=== PATIENT | female | born 1970 | race Caucasian/White ===

== ENCOUNTER 2018-05-03 10:16 | Emergency (ER) | payer OTHER ==
[~2018-05-03] VITALS: Ht 175.3 cm; Wt 85.1 kg
[2018-05-03 10:18] VITALS: TEMP 36.8; Ht 175.3 cm; Wt 85.1 kg
[2018-05-03] MEDS ORDERED: RANITIDINE HCL 50 MG/100 ML D5W IV STA (10:26)
[2018-05-03] MEDS ORDERED: METHYLPREDNISOLONE 125 MG VIAL IV STA (10:26)
[2018-05-03] MEDS ORDERED: DiphenhydrAMINE HCL 50 MG/ML VIAL IV STA (10:26)
--- NOTE | 2018-05-03 10:32 | EMERGENCY ROOM VISIT NOTE ---
History Report prepared by Kwabena: Abbe Becker Under the Supervision of: Dr. Danyelle Rice M.D. First contact with patient: 10:23 Chief Complaint: ALLERGIC REACTION Stated Complaint: CHEST PAIN,DOC REFERRED History of Present Illness The patient is a 47 year old female who presents to the Emergency Room with complaints of an allergic reaction The patient states she is allergic to peanuts. She reports she was out to breakfast today when she ate something that had chocolate in it. The patient notes she started to wheeze and used her inhaler twice. She states her wheezing subsided and then returned after she returned home. The patient reports she used her inhaler again, and she had relief of her symptoms. She notes she then developed constant chest pressure approximately 30 minutes later. The patient states it is located in the central part of her chest, and it feels like she is being sandwiched. She reports the chest discomfort is a new symptom of her allergic reaction, so she came to the ED. The patient notes she did not take Benadryl because her inhaler typically resolves her allergic symptoms. She states she has a history of asthma and seasonal allergies. The patient denies tongue swelling, itching, rash, a history of smoking, a history of heart problems, worsening pain and shortness of breath with exertion, and swelling in her legs. 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 Review of Systems See HPI for pertinent positives & negatives. A total of 10 systems reviewed and were otherwise negative. Past Medical & Surgical Medical Problems: (1) Asthma (2) Peanut allergy (3) Seasonal allergies Family History Patient reports no known family medical history. Social History Smoking Status: Never Smoker Marital Status: Housing Status: lives with family Occupation Status: employed Current/Historical Medications Scheduled Albuterol Hfa (Ventolin Hfa), 2-4 PUFFS INH Q6H Prednisone (Prednisone), 40 MG PO DAILY Scheduled PRN Albuterol Hfa (Ventolin Hfa), 2-4 PUFFS INH Q6H PRN for Shortness of Breath Epinephrine (Epipen 2-Jaiden), 1 AMP IM DIRECTED PRN for Allergic Reaction Allergies Coded Allergies: Peanut (Unverified Allergy, Unknown, ., 05/03/18) Penicillins (Unverified Allergy, Unknown, ., 05/03/18) Physical Exam Vital Signs Date Time Temp Pulse Resp B/P (MAP) Pulse Ox O2 Delivery O2 Flow Rate FiO2 05/03/18 13:06 61 18 111/61 96 05/03/18 11:00 55 18 123/76 98 Room Air 05/03/18 10:42 96 Room Air 05/03/18 10:33 63 05/03/18 10:18 36.8 64 18 125/72 96 Room Air Physical Exam Vital signs reviewed. General: Well-appearing 47 year old female, in no significant distress. HEENT: No scleral icterus, PERRLA, neck supple. Atraumatic. No erythema or swelling to the posterior oropharynx. Cardiovascular: Regular rate and rhythm, no extra sounds. Pulmonary: Clear to auscultation bilaterally, normal work of breathing. Abdomen: Soft, nontender, nondistended, positive bowel sounds. Musculoskeletal: Atraumatic, no peripheral edema. Neurologic: Patient awake alert and oriented x 3 Skin: Warm, dry, no rash Medical Decision & Procedures Laboratory Results 05/03/18 10:35 Red Blood Count 4.52, Mean Corpuscular Volume 92.5, Mean Corpuscular Hemoglobin 32.7, Mean Corpuscular Hemoglobin Concent 35.4, Mean Platelet Volume 9.8, Neutrophils (%) (Auto) 65.4, Lymphocytes (%) (Auto) 23.2, Monocytes (%) (Auto) 9.7, Eosinophils (%) (Auto) 1.3, Basophils (%) (Auto) 0.2, Neutrophils # (Auto) 3.65, Lymphocytes # (Auto) 1.29, Monocytes # (Auto) 0.54, Eosinophils # (Auto) 0.07, Basophils # (Auto) 0.01 05/03/18 10:35 Test 05/03/18 10:35 White Blood Count 5.57 K/uL (4.8-10.8) Red Blood Count 4.52 M/uL (4.2-5.4) Hemoglobin 14.8 g/dL (12.0-16.0) Hematocrit 41.8 % (37-47) Mean Corpuscular Volume 92.5 fL (80-100) Mean Corpuscular Hemoglobin 32.7 pg (25-34) Mean Corpuscular Hemoglobin Concent 35.4 g/dl (32-36) Platelet Count 224 K/uL (130-400) Mean Platelet Volume 9.8 fL (7.4-10.4) Neutrophils (%) (Auto) 65.4 % Lymphocytes (%) (Auto) 23.2 % Monocytes (%) (Auto) 9.7 % Eosinophils (%) (Auto) 1.3 % Basophils (%) (Auto) 0.2 % Neutrophils # (Auto) 3.65 K/uL (1.4-6.5) Lymphocytes # (Auto) 1.29 K/uL (1.2-3.4) Monocytes # (Auto) 0.54 K/uL (0.11-0.59) Eosinophils # (Auto) 0.07 K/uL (0-0.5) Basophils # (Auto) 0.01 K/uL (0-0.2) RDW Standard Deviation 42.7 fL (36.4-46.3) RDW Coefficient of Variation 12.7 % (11.5-14.5) Immature Granulocyte % (Auto) 0.2 % Immature Granulocyte # (Auto) 0.01 K/uL (0.00-0.02) Anion Gap 5.0 mmol/L (3-11) Est Creatinine Clear Calc Drug Dose 83.4 ml/min Estimated GFR () 81.5 Estimated GFR (Non- 70.3 BUN/Creatinine Ratio 13.3 (10-20) Calcium Level 8.9 mg/dl (8.5-10.1) Total Bilirubin 2.0 mg/dl (0.2-1) Direct Bilirubin 0.4 mg/dl (0-0.2) Aspartate Amino Transf (AST/SGOT) 26 U/L (15-37) Alanine Aminotransferase (ALT/SGPT) 45 U/L (12-78) Alkaline Phosphatase 57 U/L (45-117) Troponin I < 0.015 ng/ml (0-0.045) Total Protein 7.9 gm/dl (6.4-8.2) Albumin 4.3 gm/dl (3.4-5.0) Laboratory results per my review. Medications Administered Medications (Trade) Dose Ordered Sig/Leighton Route Start Time Stop Time Status Last Admin Dose Admin Diphenhydramine HCl (Benadryl Inj) 50 mg NOW STAT IV 05/03/18 10:26 05/03/18 10:28 DC 05/03/18 10:47 50 MG Ranitidine HCl (zANTac IV) 50 mg NOW STAT IV 05/03/18 10:26 05/03/18 10:28 DC 05/03/18 10:47 50 MG Methylprednisolone Sodium Succinate (Solu-Medrol IV) 125 mg NOW STAT IV 05/03/18 10:26 05/03/18 10:28 DC 05/03/18 10:47 125 MG ECG Per My Interpretation Indication: chest pain Rate (beats per minute): 61 Rhythm: normal sinus Findings: no acute ischemic change, no ectopy ED Course 1026: Past medical records reviewed. The patient was evaluated in room A09B. A complete history and physical examination was performed. 1228: Upon reevaluation, the patient appeared to have improvement of her symptoms. I discussed findings with her. She verbalized agreement of the treatment plan. The patient was discharged home. Medical Decision Differential diagnosis: Etiologies such as allergic reaction, anaphylaxis, urticaria, Lloyd-Winston syndrome, toxic epidermal necrolysis, erythema multiforme, cellulitis, as well as others were entertained. This patient was evaluated and appeared to be in no significant distress. Patient was given IV Benadryl, IV Zantac and IV Solu-Medrol. She was observed on the diagnostic cardiac sonographer without incident. Patient was feeling much improved on my reevaluation. The patient likely suffered from either gastritis with esophageal reflux/spasm or an allergic response. Nonetheless she is feeling much improved at this time. She will be discharged with a prescription for prednisone 40 mg daily for the next 4 days and advised to use Benadryl as needed. She will continue with her albuterol inhaler and follow-up with her PCP as soon as possible. She will return to the ED for worsening of symptoms or any medical concerns. Medication Reconcilliation Current Medication List: was personally reviewed by me Blood Pressure Screening Patient's blood pressure: Normal blood pressure Blood pressure disposition: Did not require urgent referral Impression Primary Impression: Asthma exacerbation Additional Impression: Allergic reaction Scribe Attestation The scribe's documentation has been prepared under my direction and personally reviewed by me in its entirety. I confirm that the note above accurately reflects all work, treatment, procedures, and medical decision making performed by me. Departure Information Dispostion Home / Self-Care Prescriptions Epinephrine (EPIPEN 2-JAIDEN) 0.3 Mg Inj 1 AMP IM DIRECTED Y for Allergic Reaction, #1 BOX Prov: Danyelle Rice M.D. 05/03/18 Albuterol Hfa (VENTOLIN HFA) 200 Puffs/30604 Mcg Aers 2-4 PUFFS INH Q6H, #1 INHALER Prov: Danyelle Rice M.D. 05/03/18 Prednisone (Prednisone) 20 Mg Tab 40 MG PO DAILY, #8 TAB Prov: Danyelle Rice M.D. 05/03/18 Referrals No Doctor, Assigned (PCP) Forms HOME CARE DOCUMENTATION FORM, IMPORTANT VISIT INFORMATION Patient Instructions EpiPen Auto Injector Dc, My [facility] [employer] Additional Instructions Diagnosis: Allergic reaction, asthma exacerbation Prednisone 40 mg daily for 4 more days, start tomorrow Benadryl 25-50 mg every 6 hours as needed for allergic symptoms. Albuterol 2 puffs every 4 hours as needed for wheezing/cough. EpiPen as needed for severe allergic symptoms. Please refer to return to the emergency department if administered. Please call to establish care with a primary care physician locally as soon as possible. Return to the emergency department for worsening of symptoms or any medical concerns. Problem Qualifiers Additional Impression: Allergic reaction Encounter type: initial encounter Qualified Codes: T78.40XA - Allergy, unspecified, initial encounter
[2018-05-03 10:43] LABS: BASO % 0.2 %; BASO ABS # 0.01 K/uL (0-0.2); EOS % 1.3 %; EOS ABS # 0.07 K/uL (0-0.5); HEMATOCRIT 41.8 % (37-47); HEMOGLOBIN 14.8 g/dL (12.0-16.0); IG# 0.01 K/uL (0.00-0.02); LYMPH % 23.2 %; LYMPH ABS # 1.29 K/uL (1.2-3.4); MEAN CELL VOLUME 92.5 fL (80-100); MEAN CORPUSCULAR HEMOGLOBIN 32.7 pg (25-34); MEAN CORPUSCULAR HGB CONC 35.4 g/dl (32-36); MEAN PLATELET VOLUME 9.8 fL (7.4-10.4); MONO % 9.7 %; MONO ABS # 0.54 K/uL (0.11-0.59); NEUT % 65.4 %; NEUT ABS # 3.65 K/uL (1.4-6.5); PLATELET COUNT 224 K/uL (130-400); RED CELL DISTRIBUTION WIDTH CV 12.7 % (11.5-14.5); RED CELL DISTRIBUTION WIDTH SD 42.7 fL (36.4-46.3); WHITE BLOOD COUNT 5.57 K/uL (4.8-10.8)
[2018-05-03 11:12] LABS: ALBUMIN 4.3 gm/dl (3.4-5.0); ALKALINE PHOSPHATASE 57 U/L (45-117); ALT/SGPT 45 U/L (12-78); AST/SGOT 26 U/L (15-37); BLOOD UREA NITROGEN 13 mg/dl (7-18); CALCIUM 8.9 mg/dl (8.5-10.1); CARBON DIOXIDE 27 mmol/L (21-32); CREATININE 0.95 mg/dl (0.60-1.20); GLUCOSE 97 mg/dl (70-99); POTASSIUM 3.6 mmol/L (3.5-5.1); SODIUM 141 mmol/L (136-145); TOTAL PROTEIN 7.9 gm/dl (6.4-8.2)
[2018-05-03] MEDS ORDERED: VNTHFA/IN INH ×2 (12:05→12:57)
[2018-05-03] MEDS ORDERED: EPP3/2 IM (12:57)
[2018-05-03] MEDS ORDERED: PRED20TA PO (12:57)
[2018-05-03 13:06] VITALS: BP 111/61; PULSE 61; O2SAT 96
== END 2018-05-03 13:08 | disposition home or self-care (01) ==
LOC: C.EDB 10:19 → C.EDA 13:08
DX: J45.901 Unspecified asthma with (acute) exacerbation (principal); T78.40XA Allergy, unspecified, initial encounter; X58.XXXA Exposure to other specified factors, initial encounter